=== PATIENT | female | born 1980 | race African-American/Black ===

== ENCOUNTER → 2020-09-03 08:27 | Outpatient (BNVA) | payer BC, SELFPAY | PROVIDERS: Visit Provider Surgery ==

== ENCOUNTER 2020-09-12 06:59 | Day surgery (SDC) | payer SELFPAY ==
[2020-09-04 18:46] VITALS: BMI 47.9
--- NOTE | 2020-09-11 16:05 | MHC.SHP ---
Pre-Procedural Eval Section B Chief Complaint: reflux Allergies: Allergies Allergy/AdvReac Type Severity Reaction Status Date / Time No Known Allergies Allergy Verified 09/04/20 18:46 Plan I have reviewed the history and physical and performed a pertinent physical examination on my patient. No changes have occurred unless specified.
[2020-09-12 07:34] LABS: COVID-19 Test Negative (Negative)
[2020-09-12 08:02] VITALS: BP 99/52; PULSE 80; RESP 16; TEMP 36.1; O2SAT 100
--- NOTE | 2020-09-12 08:11 | HO.ANESPROP2 ---
HPI - Anesthesia Eval Consult details Narrative: 39yo female patient for EGD PMFSH Active Problems Active Problems: All Active Problems (Updated 09/03/20 @ 10:02 by Estrellita Worley MD) Preoperative examination (Acute) Shortness of breath (Acute) Morbid obesity due to excess calories (Acute) BMI 45.0-49.9, adult (Acute) Past Medical History Medical History Anxiety Chronic back pain Depression HTN (hypertension) Iron deficiency Scalp psoriasis Sciatica Vertigo Family History Family History Mother No problems noted. Father Hypertension Thyroid crisis Hyperlipidemia Anxiety Depression Sister No problems noted. Sister No problems noted. Sister No problems noted. Brother No problems noted. Son No problems noted. Daughter Anxiety Asthma Family history of problems with anesthesia: No Surgical History Surgical History History of bariatric surgery History of endoscopy Hx of tubal ligation History of Problems with Anesthesia: No Social History Social History Alcohol intake: current Alcohol intake frequency: holidays/special occasions only Use of substances other than those prescribed or required for medical reasons: No Are you DNR?: No Advance Directives: No Advance Directives Information Provided: No Advance Directives on File: No Patient : No FDLMP: 08/12/2020 : No Poor oral hygiene: No Meds Allergies Allergy/AdvReac Type Severity Reaction Status Date / Time No Known Allergies Allergy Verified 09/04/20 18:46 Home Medications Medication Instructions Recorded Confirmed Last Taken Type azelastine 0.05 % eye drops 1 drp OPHTHALMIC (EYE) BID PRN 09/03/20 09/04/20 Unknown History baclofen 10 mg tablet 10 mg PO TID PRN 09/03/20 09/04/20 Unknown History cefuroxime axetil 500 mg tablet 500 mg PO BID PRN 09/03/20 09/04/20 Unknown History cyclobenzaprine 10 mg tablet 10 mg PO TID PRN 09/03/20 09/04/20 Unknown History diazepam 10 mg tablet 10 mg PO Q8H PRN 09/03/20 09/04/20 Unknown History fluocinolone 0.01 % scalp oil and 1 ea TOPICAL 3XW ml 09/03/20 09/04/20 Unknown History shower cap gabapentin 600 mg tablet 600 mg PO TID PRN 09/03/20 09/04/20 Unknown History labetalol 100 mg tablet 100 mg PO BID 09/03/20 09/04/20 09/12/20 History paroxetine HCl 20 mg tablet 20 mg PO DAILY 09/03/20 09/03/20 Unknown History tizanidine 2 mg capsule 2 mg PO TID 09/03/20 09/03/20 Unknown History Exam Exam Date and Time: September 12, 2020 0811 Height,Weight and Vital Signs: Height 5 ft 5 in Weight 130.635 kg Last Vital Signs Temp 97.0 F 09/12/20 08:02 Pulse 80 09/12/20 08:02 Resp 16 09/12/20 08:02 BP 99/52 L 09/12/20 08:02 Pulse Ox 100 09/12/20 08:02 Pertinent Lab Results Pertinent Lab Results: Laboratory Tests 09/12/20 07:04 COVID-19 ([facility]) Negative COVID-19 Clin Com See Note Assessment and Plan Assessment Anesthesia Assessment: Anesthesia Plan Discussed and Chart Reviewed Final Anesthetic Review NPO: Yes ASA Class: III Final Preanesthetic Review: No Changes in Pt Med Stat, Meds/Allgs Chart Reviewed, Consent Obtained/Reviewed and Anes Risks/Benef Reviewed Patient Risk: Intermediate Procedure Risk: Low Assessment/Block/Sedation in SS: Assess/Block/Sedation-SS Anesthetic Plan Anesthetic Plan: MAC: Disposition: Standard PACU
--- NOTE | 2020-09-12 08:15 | P.BOP_ITS ---
Brief Operative Note Date of Service: 09/12/20 Pre-op diagnosis: Weight gain after vertical banded gastroplasty many years ago Post-op diagnosis: other (Small sliding hiatal hernia, antral gastritis, normal vertical banding gastroplasty) Procedure: Esophagogastroduodenoscopy, antral biopsy x2 Implants: None Surgeon: Estrellita Worley MD Anesthesia: MAC Was an Cloak Room Attendant used for this Procedure?: No Estimated blood loss (mL): 0 Pathology: other (Antral biopsy x2) Condition: stable Disposition: PACU
[2020-09-12 09:04] VITALS: BP 120/80; PULSE 91; RESP 16; TEMP 36.2; O2SAT 99
[2020-09-12 09:19] VITALS: BP 122/89; PULSE 71; RESP 16; TEMP 36.2; O2SAT 99
--- NOTE | 2020-09-12 10:56 | OP_ITS ---
SURGEON: Estrellita Worley MD PREOPERATIVE DIAGNOSIS: POSTOPERATIVE DIAGNOSIS: PROCEDURE PERFORMED: ESTIMATED BLOOD LOSS: COMPLICATIONS: None. ANESTHESIA: ASSISTANTS: SPECIMENS: PREPROCEDURE DIAGNOSIS: Weight gain after vertical banded gastroplasty many years ago. POSTPROCEDURE DIAGNOSES: Small hiatal hernia, normal vertical banded gastroplasty, and antral gastritis. PROCEDURES PERFORMED: 1. Esophagogastroduodenoscopy. 2. Antral biopsy x2. FINDINGS: GE junction located at 36 cm from the incisors. The opening of the banded portion of the stomach located at 38 cm from the incisors. No evidence of mucosal lesions proximally. There was evidence of granularity and erythema in the antrum. The rest of the stomach appeared to be normal. CONDITION: Postprocedure, good. DESCRIPTION OF PROCEDURE: The patient was brought into the operating room on a stretcher and placed in the left lateral decubitus position. A safety time-out was performed. A bite block was placed between the teeth. Total intravenous anesthesia was administered using propofol by the nurse general ledger bookkeeper. Once the patient was adequately sedated, the gastroscope was placed into posterior oropharynx, passed down the esophagus, evaluating the esophageal mucosa which was normal. The GE junction was located at 36 cm from the incisors. There was a small hiatal hernia. The gastroscope was passed into the gastric pouch, which was small. The banded portion of the stomach was located at 38 cm from the incisors. I was able to easily pass the scope into the banded portion of the stomach and then retroflexed and all these portions of the upper endoscopy were normal. The gastroscope was passed to the pre-pyloric region. There was some erythema and granularity of the mucosa, which was biopsied x2 to evaluate for H pylori. The gastroscope was passed through the pylorus down to the 3rd portion of the duodenum, all of which was normal. All of these portions of the upper endoscopy were documented using photo documentation. The gastroscope was retracted back into the stomach. Stomach was desufflated and the gastroscope was removed without difficulty. The patient tolerated the procedure well and was sent to the recovery room in stable condition. Estrellita Worley MD UM/MODL / [id number]
== END 2020-09-12 09:50 | disposition home or self-care (01) ==
PROVIDERS: Visit Provider Surgery
PROC: 0DJ08ZZ Inspection of Upper Intestinal Tract, Via Natural or Artificial Opening Endoscopic (ICD-10-PCS; CPT 43235; principal; 2020-09-12 08:40)
DX: K21.9 Gastro-esophageal reflux disease without esophagitis (principal); E66.01 Morbid (severe) obesity due to excess calories; Z68.42 Body mass index [BMI] 45.0-49.9, adult; K29.50 Unspecified chronic gastritis without bleeding; K44.9 Diaphragmatic hernia without obstruction or gangrene; Z98.84 Bariatric surgery status; I10 Essential (primary) hypertension; E61.1 Iron deficiency; Z79.899 Other long term (current) drug therapy
CPT/HCPCS: 43239; 36415; 87635; 88305; 88342; J2250